=== PATIENT | male | born 1995 | race Caucasian/White ===

== ENCOUNTER 2024-12-17 08:49 | Emergency (ER) | payer OTHER, SELFPAY ==
[2024-12-17 08:54] VITALS: BP 166/86; PULSE 98; TEMP 37.1; O2SAT 98; BMI 36.5
--- NOTE | 2024-12-17 09:41 | ED.URI1 ---
HPI - URI/Sore Throat General Chief Complaint: Upper Respiratory Infection Stated Complaint: SORE THROAT, RASH ON NECK, CLOUDY FEELING Time Seen by Provider: 12/17/24 09:00 Source: patient Limitations: no limitations History of Present Illness HPI Narrative: The patient is a 29-year-old male presenting to the ER with a 24 hours history of runny nose history of sore throat as scheduled there is rash that is seen in his the anterior of the neck as well as the posterior aspect as well. Patient mentioned that he just feels generally tired but he denies any cough fever or any other complaints No nausea no vomiting no other concerns Related Data Home Medications ?Medication ?Instructions ?Recorded ?Confirmed omeprazole 40 mg capsule,delayed 40 mg PO DAILY 12/17/24 12/17/24 release Previous Rx's ?Medication ?Instructions ?Recorded alclometasone 0.05 % topical cream 1 applic topical Q12H PRN itching 12/17/24 #15 grams Allergies Allergy/AdvReac Type Severity Reaction Status Date / Time No Known Drug Allergies Allergy Verified 12/17/24 08:54 Review of Systems ROS Status of ROS 10 or more systems reviewed and unremarkable except as noted in history and below PFSH PFSH Social History Little interest or pleasure in doing things: not at all Feeling down, depressed, or hopeless: not at all Exam Narrative Exam Narrative: Nurses notes and vital signs reviewed and patient is not hypoxic. General: Well-appearing and in no apparent distress. Skin: The patient have a maculopapular rash on the anterior and posterior aspect of the neck on both sides it is mostly secondary to contact dermatitis Head: Normocephalic, atraumatic. Neck: Supple, non-tender. Eye: Pupils are equal, round and EOMI. No scleral icterus. Ears, Nose, Mouth, and Throat: , no nasal mucosal hypertrophy. Oral mucosa is moist, bilateral tonsillar erythema noted but there is no significant swelling and there is no exudate, uvula is mid-line Cardiovascular: Regular Rate and Rhythm without murmur, gallop or rub. Respiratory: No accessory muscle use or respiratory distress. Lungs are clear to auscultation, no wheezing, rales or rhonchi Chest Wall: no tenderness Back: No midline thoracic or lumbar vertebral tenderness. No CVA tenderness Musculoskeletal: normal ROM, no calf or popliteal tenderness, no lower extremity edema/swelling GI: Abdomen is soft, non-distended. Normal bowel sounds. No masses appreciated. No tenderness to palpation. No rebound, guarding, or rigidity noted. Neurological: A&O x4. No cranial nerve dysfunction observed. No truncal ataxia. Moves all extremities. Sensation intact. Psychiatric: Cooperative and interactive. Normal mood and affect. Constitutional Vital Signs, click to edit/add: Last Vital Signs Temp 98.7 F 12/17/24 08:54 Pulse 98 H 12/17/24 08:54 Resp 20 12/17/24 08:54 BP 166/86 H 12/17/24 08:54 Pulse Ox 98 12/17/24 08:54 O2 Del Method Room Air 12/17/24 08:54 Course Vital Signs Vital signs: Vital Signs Temperature 98.7 F 12/17/24 08:54 Pulse Rate 98 H 12/17/24 08:54 Respiratory Rate 20 12/17/24 08:54 Blood Pressure 166/86 H 12/17/24 08:54 Pulse Oximetry 98 12/17/24 08:54 Oxygen Delivery Method Room Air 12/17/24 08:54 Temperature 98.7 F 12/17/24 08:54 Pulse Rate 98 H 12/17/24 08:54 Respiratory Rate 20 12/17/24 08:54 Blood Pressure 166/86 H 12/17/24 08:54 Pulse Oximetry 98 12/17/24 08:54 Oxygen Delivery Method Room Air 12/17/24 08:54 MDM - URI/Sore Throat MDM Narrative Medical decision making narrative: The patient strep test is negative and his sore throat could be secondary to viral illness in addition to the runny nose The patient also had this rash that is nonspecific is only limited to the anterior posterior aspect of the neck that could be contact dermatitis he was instructed about making sure that there is a good hygiene of the area in addition to applying steroid cream The patient to monitor his symptoms The Progression He Is to Come Back to the ER The patient also instructed about the importance of HIV testing in case he was at risk for that with his primary care The patient to follow-up with the primary care within 2 to 3 days and to come back to the ER in case of any worsening of the current symptoms or any new symptoms or concerns Lab Data Labs: Lab Results 12/17/24 Range/Units 09:05 Streptococcus Screen Negative Discharge Plan Discharge Chief Complaint: Upper Respiratory Infection Clinical Impression: Upper respiratory infection, Contact dermatitis Patient Disposition: Home, Self-Care Time of Disposition Decision: 09:42 Condition: Good Prescriptions / Home Meds: New alclometasone 0.05 % cream 1 applic topical Q12H PRN (Reason: itching) Qty: 15 0RF Rx Instructions: for 7 days No Action omeprazole 40 mg capsule,delayed release(DR/EC) 40 mg PO DAILY Print Language: Kenyan Instructions: Contact Dermatitis (DC), Pharyngitis (ED), Upper Respiratory Infection (DC)
== END 2024-12-17 10:25 | disposition home or self-care (01) ==
PROVIDERS: Emergency Provider Emergency Medicine
DX: J06.9 Acute upper respiratory infection, unspecified (principal); L25.9 Unspecified contact dermatitis, unspecified cause
CPT/HCPCS: 87070; 87880; 99283